=== PATIENT | male | born 1940 | race Caucasian/White ===

== ENCOUNTER → 2017-06-18 | Outpatient (CLI) | payer OTHER ==
[~2017-06-18] MED LIST: ACET-1311 PO; AMLO-114 PO; ASPI-232 PO; CLOP1TAB15 PO; IPRA1AER2 INH; LISI-461 PO; MULT-506 PO; PANT40TA PO; POTA99TA PO; PRAV20TA PO; PRAV40TA2 PO; SERT50TA PO; SYMIN160 INH; TAMS0.4C38 PO
== END | disposition home or self-care (01) ==
LOC: C.PATHSPEC 17:03
PROVIDERS: ATTEND Surgery
DX: L82.1 Other seborrheic keratosis (principal)

== ENCOUNTER → 2017-08-28 | Day surgery (SDC) | payer OTHER ==
[2017-08-19 10:00] VITALS: Ht 172.7 cm; Wt 88.2 kg
[~2017-08-28] VITALS: Ht 172.7 cm; Wt 88.2 kg
[~2017-08-28] MED LIST changes: +LIDOCAINE HCL 2% 2 ML VIAL (20MG/ML) ONE; -PRAV20TA PO; +PROPOFOL IV EMULSION 10 MG/ML 20 ML VIAL IV ONE
[2017-08-28 09:03] VITALS: TEMP 36.7
--- NOTE | 2017-08-28 10:04 | Endo History and Physical ---
History & Physical Date of Service: Aug 28, 2017. Chief Complaint: Refux Referring Physician: Dr. Zion Dawn History of Present Illness GERD Past Medical History Pacemaker, Male Genitourinary Prob., High Cholesterol, Hypertension, CVA/TIA Past Surgical History Hx Cardiac Surgery: No Hx Internal Defibrillator: No Hx Pacemaker: Yes () Hx Abdominal Surgery: Yes (HERNIA REPAIR X2) Hx of Implantable Prosthesis: No Hx Post-Op Nausea and Vomiting: No Hx Cancer Surgery: No Hx Thoracic Surgery: No Hx Orthopedic: No Hx Urinary Tract Surgery: No Family History None Social History Smoking Status: Former Smoker Hx Substance Use: No Hx Alcohol Use: No Allergies Coded Allergies: Dipyridamole (Verified Adverse Reaction, Unknown, GI UPSET, DIZZINESS, ) PT CAN TOLERATE ASA Current Medications Reported Home Medications Medications Dose Route/Sig Max Daily Dose Days Date Category Dose Instructions Pravastatin Sodium 40 Mg Tab 1 Tab PO HS 08/19/17 Reported Aspir-81 (Aspirin) 81 Mg Tab 1 Tab PO QAM 08/30/15 Reported Multivitamin (Multivitamins) Tab 1 Tab PO HS 08/30/15 Reported Flomax (Tamsulosin Hcl) 0.4 Mg Cap 0.8 Mg PO HS 08/30/15 Reported Symbicort 160/4.5 Inhaler (Budesonide/Formoterol Fumarate) Aero 2 Puffs INH BID 05/16/14 Reported Potassium 99 Mg Tab 1 Tab PO QPM 02/25/14 Reported Combivent Respimat (Ipratropium-Albuterol) 1 Aer Aer 1 Puffs INH QID PRN 02/25/14 Reported Zoloft (Sertraline HCl) 50 Mg Tab 50 Mg PO HS 02/25/14 Reported Tylenol (Acetaminophen) 325 Mg Tab 325 Mg PO Q4 PRN 12/27/13 Reported Norvasc (Amlodipine Besylate) 10 Mg Tab 10 Mg PO QAM 12/27/13 Reported Zestril (Lisinopril) 10 Mg Tab 10 Mg PO QAM 12/27/13 Reported Protonix (Pantoprazole Sodium) 40 Mg Tab 40 Mg PO @ NOON 07/17/12 Reported with lunch Plavix (Clopidogrel Bisulfate) 75 Mg Tab 75 Mg PO QAM 05/07/09 Reported Vital Signs Weight (Kilograms): 88.18 Height (Feet): 5 Height (Inches): 8 Date Time Temp Pulse Resp B/P (MAP) Pulse Ox O2 Delivery O2 Flow Rate FiO2 08/28/17 09:03 36.7 53 20 163/79 (107) 95 Room Air Physical Exam General Appearance: no apparent distress Respiratory/Chest: Auscultation: breath sounds normal Cardiovascular: Heart Auscultation: RRR Abdomen: Inspection & Palpation: soft Assessment and Plan GERD - EGD
--- NOTE | 2017-08-28 10:30 | GI REPORT ---
Procedure Date: 08/28/2017 10:02 AM Procedure: Upper GI endoscopy Indications: Abdominal pain - Pt with epigastric bloating lasting 15 mins after eating Medicines: See the Anesthesia note for documentation of the administered medications Complications: No immediate complications. Estimated Blood Loss: Estimated blood loss: none. Procedure: Pre-Anesthesia Assessment: - ASA Grade Assessment: III - A patient with severe systemic disease. After obtaining informed consent, the endoscope was passed under direct vision. Throughout the procedure, the patient's blood pressure, pulse, and oxygen saturations were monitored continuously. The scope was introduced through the mouth, and advanced to the second part of duodenum. The upper GI endoscopy was accomplished without difficulty. The patient tolerated the procedure well. Findings: The examined esophagus was normal. The stomach was normal. The examined duodenum was normal. Impression: - Normal esophagus. - Normal stomach. - Normal examined duodenum. - No specimens collected. Recommendation: - Discharge patient to home. Josi Banks M.D. Josi Banks MD 08/28/2017 10:30:07 AM This report has been signed electronically. Note Initiated On: 08/28/2017 10:02 AM I attest to the content of the Intraoperative Record and orders documented therein, exceptions below
--- NOTE | 2017-08-28 10:42 | Anesthesiology Progress Note ---
Anesthesia Post Op Note Date & Time Aug 28, 2017 at 10:41 Vital Signs Pain Intensity: 0 Vital Signs Past 12 Hours Date Time Temp Pulse Resp B/P (MAP) Pulse Ox O2 Delivery O2 Flow Rate FiO2 08/28/17 10:39 62 16 125/81 (96) 95 Room Air 08/28/17 10:24 69 16 94/56 (69) 96 Room Air 08/28/17 09:03 36.7 53 20 163/79 (107) 95 Room Air Notes Mental Status: alert / awake / arousable, participated in evaluation Pt Amnestic to Procedure: Yes Nausea / Vomiting: adequately controlled Pain: adequately controlled Airway Patency, RR, SpO2: stable & adequate BP & HR: stable & adequate Hydration State: stable & adequate Anesthetic Complications: no major complications apparent
[2017-08-28 10:54] VITALS: BP 143/90; PULSE 69; O2SAT 95
--- NOTE | 2017-08-28 11:11 | Discharge Instructions ---
Endoscopy Patient Instructions Date / Procedure(s) Performed Aug 28, 2017. EGD Allergy Information Coded Allergies: Dipyridamole (Verified Adverse Reaction, Unknown, GI UPSET, DIZZINESS, ) PT CAN TOLERATE ASA Discharge Date / Findings Aug 28, 2017. Normal EGD Medication Instructions Stopped Medication(s): Patient was told to stop his plavix a week ago. Resume Plavix today Provider Instructions Activity Restrictions - No exercising or heavy lifting for 24 hours. - Do not drink alcohol the day of the procedure. - Do not drive a car or operate machinery until the day after the procedure. - Do not make any important decisions or sign important papers in 24 hours after the procedure. Following Day: - Return to full activity which may include returning to work/school. Diet Start your diet with liquids and light foods (jello, soup, juice, toast). Then eat your usual diet if not nauseated. Treatment For Common After Affects For mild abdominal pain, bloating, or excessive gas: - Rest - Eat lightly - Lie on right side Follow-Up Information Follow-up with Dr. Zion Dawn as scheduled. Consider GB ultrasound. Anesthesia Information What You Should Know You have had a procedure that required some medicine to reduce anxiety and discomfort. This treatment is called moderate sedation. After receiving the treatment, you may be sleepy, but you will be able to breathe on your own. The effects of the treatment may last for several hours. Follow these instructions along with Activity/Diet recommendations noted above: * Do NOT do anything where dizziness or clumsiness would be dangerous. * Rest quietly at home today, then you can be up and about tomorrow. * Have a responsible person stay with you the rest of today. * You may have had an I.V. today. If so, you may take the dressing off later today. Recommendations Call your doctor if: * Trouble breathing * Continuous vomiting for more than 24 hours * Temperature above 101 degrees * Severe abdominal pain or bloating * Pain not relieved by pain medicine ordered * There is increased drainage or redness from any incision * A large amount of rectal bleeding greater than 2-3 tablespoons. (If you had a polyp/s removed or have hemorrhoids, a small amount of blood - from the rectum is to be expected.) * You have any unanswered questions or concerns. IN THE EVENT OF A SERIOUS EMERGENCY, GO TO THE NEAREST EMERGENCY ROOM Your discharge instructions were prepared by provider Josi Lundberg. Patient Instructions Signature Page [place] Winslow Patient (or Guardian) Signature/Date: I have read and understand the instructions given to me by my caregivers. Caregiver/RN/Doctor Signature/Date: The above-named patient and/or guardian has received patient instructions on this date. + Original Patient Signature Page (only) stays with chart. Please make copy for patient.
== END | disposition home or self-care (01) ==
LOC: C.GI 08:38
PROVIDERS: ATTEND Internal Medicine Gastroenterology
DX: R14.0 Abdominal distension (gaseous) (principal); K21.9 Gastro-esophageal reflux disease without esophagitis; I10 Essential (primary) hypertension; E78.00 Pure hypercholesterolemia, unspecified; Z95.0 Presence of cardiac pacemaker; Z86.73 Personal history of transient ischemic attack (TIA), and cerebral infarction without residual deficits; Z87.891 Personal history of nicotine dependence; Z79.82 Long term (current) use of aspirin; Z79.02 Long term (current) use of antithrombotics/antiplatelets; Z79.899 Other long term (current) drug therapy

== ENCOUNTER → 2018-01-12 | Outpatient (CLI) | payer OTHER ==
[~2018-01-12] MED LIST changes: -LIDOCAINE HCL 2% 2 ML VIAL (20MG/ML) ONE; -PROPOFOL IV EMULSION 10 MG/ML 20 ML VIAL IV ONE
--- NOTE | 2018-01-12 15:38 | DIAGNOSTIC IMAGING REPORT ---
CHEST 2 VIEWS ROUTINE CLINICAL HISTORY: ACUTE BRONCHITIS dyspnea COMPARISON STUDY: 01/30/2016 FINDINGS: Permanent bipolar cardiac pacemaker. Chronic parenchymal prominence left lung base. Lungs otherwise appear clear. Diaphragms smooth. IMPRESSION: Chronic change left base. No acute process. The above report was generated using voice recognition software. It may contain grammatical, syntax or spelling errors. Electronically signed by: Wai Ledezma M.D. 01/12/2018 3:37 PM Dictated Date/Time: 01/12/2018 3:36 PM
[2018-01-12 17:37] LABS: BASO % 0.1 %; BASO ABS # 0.02 K/uL (0-0.2); EOS % 0.4 %; EOS ABS # 0.05 K/uL (0-0.5); HEMATOCRIT 35.2 % (42-52); HEMOGLOBIN 11.7 g/dL (14.0-18.0); IG# 0.07 K/uL (0.00-0.02); LYMPH % 11.8 %; LYMPH ABS # 1.58 K/uL (1.2-3.4); MEAN CORPUSCULAR HEMOGLOBIN 28.3 pg (25-34); MEAN CORPUSCULAR HGB CONC 33.2 g/dl (32-36); MEAN PLATELET VOLUME 8.7 fL (7.4-10.4); MONO % 9.7 %; NEUT % 77.5 %; NEUT ABS # 10.38 K/uL (1.4-6.5); PLATELET COUNT 352 K/uL (130-400); RED CELL DISTRIBUTION WIDTH CV 14.1 % (11.5-14.5); RED CELL DISTRIBUTION WIDTH SD 43.4 fL (36.4-46.3)
[2018-01-12 17:50] LABS: BLOOD UREA NITROGEN 21 mg/dl (7-18); CALCIUM 9.5 mg/dl (8.5-10.1); CARBON DIOXIDE 27 mmol/L (21-32); CREATININE 0.92 mg/dl (0.60-1.40); GLUCOSE 104 mg/dl (70-99); POTASSIUM 3.7 mmol/L (3.5-5.1); SODIUM 136 mmol/L (136-145)
== END | disposition home or self-care (01) ==
LOC: C.RADPV 15:16
PROVIDERS: ATTEND Family Medicine
DX: J20.9 Acute bronchitis, unspecified (principal)

== ENCOUNTER → 2018-01-19 | Outpatient (CLI) | payer OTHER ==
[2018-01-19 12:30] LABS: HEMATOCRIT 36.2 % (42-52); HEMOGLOBIN 11.6 g/dL (14.0-18.0); MEAN CORPUSCULAR HEMOGLOBIN 27.9 pg (25-34); MEAN PLATELET VOLUME 8.6 fL (7.4-10.4); PLATELET COUNT 423 K/uL (130-400); RED CELL DISTRIBUTION WIDTH CV 14.3 % (11.5-14.5); RED CELL DISTRIBUTION WIDTH SD 45.4 fL (36.4-46.3); WHITE BLOOD COUNT 12.53 K/uL (4.8-10.8)
== END | disposition home or self-care (01) ==
LOC: C.LABPVFM 09:18
PROVIDERS: ATTEND Family Medicine
DX: D64.9 Anemia, unspecified (principal)

== ENCOUNTER → 2018-04-16 | Outpatient (CLI) | payer OTHER ==
--- NOTE | 2018-04-16 11:35 | DIAGNOSTIC IMAGING REPORT ---
L FOREARM 2 VIEWS ROUTINE HISTORY: 77 years-old Male ARM INJ LT, INITIAL ENCOUNTER acute left forearm pain status post fall COMPARISON: None available TECHNIQUE: 3 views of the left forearm FINDINGS: No acute fracture or dislocation. The bones appear mildly demineralized. Degenerative marginal spurring about the distal humerus. 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 No acute fracture or dislocation. Mild soft tissue swelling of the dorsal proximal and mid forearm. IMPRESSION: Mild soft tissue swelling without fracture. The above report was generated using voice recognition software. It may contain grammatical, syntax or spelling errors. Electronically signed by: Vasu Maddox M.D. 04/16/2018 11:34 AM Dictated Date/Time: 04/16/2018 11:32 AM
--- NOTE | 2018-04-16 11:54 | DIAGNOSTIC IMAGING REPORT ---
L RIBS UNILATERAL WITH PA CHEST CLINICAL HISTORY: 77 years-old Male presenting with ARM INJ LT, INITIAL ENCOUNTER. TECHNIQUE: PA view of the chest as well as frontal and oblique views of the right ribs were obtained. COMPARISON: Chest x-ray from 01/12/2018. FINDINGS: Left subclavian pacer with leads to the right atrium and right ventricular apex. Atherosclerosis of aortic arch. Cardiac silhouette top normal in size. Mild pulmonary vascular prominence. Heterogeneity and coarsened lung markings. No focal lung opacity. No large effusion or pneumothorax. Degenerative changes of the spine. Upper abdomen normal. No displaced left rib fracture. IMPRESSION: 1. No acute cardiopulmonary disease. 2. No displaced left rib fracture. Electronically signed by: Zion Mora M.D. 04/16/2018 11:53 AM Dictated Date/Time: 04/16/2018 11:49 AM
== END | disposition home or self-care (01) ==
LOC: C.RADPV 11:10
PROVIDERS: ATTEND Family Medicine
DX: S49.92XA Unspecified injury of left shoulder and upper arm, initial encounter (principal); X58.XXXA Exposure to other specified factors, initial encounter